=== PATIENT | male | born 1950 | race Caucasian/White ===

== ENCOUNTER 2021-05-29 14:41 | Emergency (ER) | payer OTHER ==
[~2021-05-29] VITALS: Ht 177.8 cm; Wt 99.8 kg
[~2021-05-29 14:41] MED LIST: ASPI325 PO; LISI20 PO
[2021-05-29 15:03] LABS: BASOPHILS ABSOLUTE AUTO 0.03 K/mm3 (0.00-0.23); BASOPHILS PERCENT AUTO 0 % (0-2); EOSINOPHILS ABSOLUTE AUTO 0.12 K/mm3 (0.00-0.68); EOSINOPHILS PERCENT AUTO 2 % (0-6); Hematocrit 36.5 % (37.0-53.0); Hemoglobin 12.1 g/dL (13.5-17.5); IMMATURE GRAN ABSOLUTE AUTO 0.02 K/mm3 (0.00-0.10); IMMATURE GRAN PERCENT AUTO 0 % (0-1); LYMPHOCYTES ABSOLUTE AUTO 1.92 K/mm3 (0.84-5.20); LYMPHOCYTES PERCENT AUTO 27 % (21-46); MONOCYTES ABSOLUTE AUTO 0.85 K/mm3 (0.16-1.47); MONOCYTES PERCENT AUTO 12 % (4-13); Mean Corpuscular HGB 31.4 pg (26.0-34.0); Mean Corpuscular HGB Conc 33.2 g/dL (31.5-36.5); Mean Corpuscular Volume 95 fL (80-100); Mean Platelet Volume 10.3 fL (9.1-12.4); NEUTROPHILS ABSOLUTE AUTO 4.08 K/mm3 (1.96-9.15); NEUTROPHILS PERCENT AUTO 58 % (41-73); Platelet Count 163 K/mm3 (150-400); RDW Coefficient Variation 12.3 % (11.7-14.2); RDW Standard Deviation 42.5 fL (35.1-46.3); Red Blood Cell Count 3.85 M/mm3 (4.30-5.90); White Blood Cell Count 7.02 K/mm3 (4.00-11.30)
[2021-05-29 15:27] LABS: Alanine Aminotransfer (ALT/SGP 27 U/L (12-78); Albumin, Blood 3.3 g/dL (3.4-5.0); Albumin/Globulin Ratio 0.9 (0.8-1.8); Alk Phos 61 U/L (50-136); Anion Gap 7 mmol/L (6-16); Aspartate Aminotrans (AST/SGOT 16 U/L (12-37); Bilirubin, Total 0.5 mg/dL (0.1-1.0); Blood Urea Nitrogen 25 mg/dL (8-24); Bun/Creatinine Ratio 27.4 (12.0-20.0); CO2, Blood 22 mmol/L (21-32); Calcium, Blood 8.9 mg/dL (8.5-10.1); Chloride, Blood 106 mmol/L (98-108); Creatinine, Blood 0.91 mg/dL (0.60-1.20); Globulin, Blood 3.5 g/dL (2.2-4.0); Glomerular Filtration Rate >60 (60-); Glucose, Blood 107 mg/dL (70-99); Potassium, Blood 4.2 mmol/L (3.5-5.5); Sodium, Blood 135 mmol/L (136-145); Total Protein, Blood 6.8 g/dL (6.4-8.2)
[2021-05-29] MEDS ORDERED: VITAMIN D325 MC3 PO (16:02)
[2021-05-29] MEDS ORDERED: LATANOPROST2.5 M3 BOTHEYES (16:40)
[2021-05-29] MEDS ORDERED: LOSA50 PO (16:40)
[2021-05-29] MEDS ORDERED: Betimol5 ML BOTHEYES (16:41)
[2021-05-29] MEDS ORDERED: OMEP20ER PO (16:41)
== END 2021-05-29 17:31 | disposition home or self-care (01) ==
LOC: ER 14:41
PROVIDERS: Physician Assistant
DX: K92.1 Melena (principal); I10 Essential (primary) hypertension; Z79.82 Long term (current) use of aspirin
CPT/HCPCS: 80053; 84484; 85025; 86850; 86900; 86901; 93005; 93010; 99285-25; J7030

== ENCOUNTER 2021-06-01 17:52 | Emergency (ER) | payer OTHER ==
[~2021-06-01] VITALS: Ht 177.8 cm; Wt 97.5 kg
[~2021-06-01 17:52] MED LIST changes: +Betimol5 ML BOTHEYES; +LATANOPROST2.5 M3 BOTHEYES; +LOSA50 PO; +OMEP20ER PO; +VITAMIN D325 MC3 PO
[2021-06-01 18:37] LABS: BASOPHILS ABSOLUTE AUTO 0.03 K/mm3 (0.00-0.23); BASOPHILS PERCENT AUTO 0 % (0-2); EOSINOPHILS PERCENT AUTO 1 % (0-6); Hematocrit 34.5 % (37.0-53.0); Hemoglobin 11.7 g/dL (13.5-17.5); IMMATURE GRAN ABSOLUTE AUTO 0.03 K/mm3 (0.00-0.10); IMMATURE GRAN PERCENT AUTO 0 % (0-1); LYMPHOCYTES ABSOLUTE AUTO 1.45 K/mm3 (0.84-5.20); LYMPHOCYTES PERCENT AUTO 15 % (21-46); MONOCYTES ABSOLUTE AUTO 1.29 K/mm3 (0.16-1.47); MONOCYTES PERCENT AUTO 14 % (4-13); Mean Corpuscular HGB 32.1 pg (26.0-34.0); Mean Corpuscular HGB Conc 33.9 g/dL (31.5-36.5); Mean Corpuscular Volume 95 fL (80-100); Mean Platelet Volume 10.3 fL (9.1-12.4); NEUTROPHILS ABSOLUTE AUTO 6.52 K/mm3 (1.96-9.15); NEUTROPHILS PERCENT AUTO 69 % (41-73); Platelet Count 186 K/mm3 (150-400); RDW Coefficient Variation 12.3 % (11.7-14.2); RDW Standard Deviation 42.7 fL (35.1-46.3); Red Blood Cell Count 3.65 M/mm3 (4.30-5.90); White Blood Cell Count 9.42 K/mm3 (4.00-11.30)
[2021-06-01 18:56] LABS: Alanine Aminotransfer (ALT/SGP 28 U/L (12-78); Albumin, Blood 3.6 g/dL (3.4-5.0); Albumin/Globulin Ratio 0.9 (0.8-1.8); Alk Phos 68 U/L (50-136); Anion Gap 6 mmol/L (6-16); Aspartate Aminotrans (AST/SGOT 20 U/L (12-37); Bilirubin, Total 0.4 mg/dL (0.1-1.0); Blood Urea Nitrogen 17 mg/dL (8-24); Bun/Creatinine Ratio 16.3 (12.0-20.0); CO2, Blood 26 mmol/L (21-32); Calcium, Blood 9.2 mg/dL (8.5-10.1); Chloride, Blood 103 mmol/L (98-108); Creatinine, Blood 1.04 mg/dL (0.60-1.20); Globulin, Blood 3.8 g/dL (2.2-4.0); Glomerular Filtration Rate >60 (60-); Glucose, Blood 107 mg/dL (70-99); Potassium, Blood 3.8 mmol/L (3.5-5.5); Sodium, Blood 135 mmol/L (136-145); Total Protein, Blood 7.4 g/dL (6.4-8.2)
[2021-06-02] MEDS ORDERED: ALBU90OI INH (05:22)
[2021-06-02] MEDS ORDERED: AMMONIUM LACTATE1 ML MC (05:23)
[2021-06-02] MEDS ORDERED: ARTIFICIAL TEA1 EAC1 (05:23)
[2021-06-02] MEDS ORDERED: ROCKLATAN 0.022.5 M1 OP (05:24)
[2021-06-02] MEDS ORDERED: LATA.005SO BOTHEYES (05:24)
== END 2021-06-01 19:54 | disposition left against medical advice (07) ==
LOC: ER 17:52
PROVIDERS: Physician Assistant
DX: K92.2 Gastrointestinal hemorrhage, unspecified (principal); Z53.20 Procedure and treatment not carried out because of patient's decision for unspecified reasons
CPT/HCPCS: 36415; 80053; 85025; 93005; 93010; 99284-25

== ENCOUNTER 2021-06-02 04:50 | Observation (INO) | payer OTHER ==
[~2021-06-02] VITALS: Ht 177.8 cm; Wt 97.8 kg
[2021-06-02] MEDS ORDERED: ALBU90OI INH (05:22)
[2021-06-02] MEDS ORDERED: ARTIFICIAL TEA1 EAC1 (05:23)
[2021-06-02] MEDS ORDERED: AMMONIUM LACTATE1 ML MC (05:23)
[2021-06-02] MEDS ORDERED: ROCKLATAN 0.022.5 M1 OP (05:24)
[2021-06-02] MEDS ORDERED: LATA.005SO BOTHEYES (05:24)
[2021-06-02 05:51] LABS: BASOPHILS ABSOLUTE AUTO 0.03 K/mm3 (0.00-0.23); BASOPHILS PERCENT AUTO 0 % (0-2); EOSINOPHILS ABSOLUTE AUTO 0.08 K/mm3 (0.00-0.68); EOSINOPHILS PERCENT AUTO 1 % (0-6); Hematocrit 31.8 % (37.0-53.0); Hemoglobin 10.8 g/dL (13.5-17.5); IMMATURE GRAN ABSOLUTE AUTO 0.02 K/mm3 (0.00-0.10); IMMATURE GRAN PERCENT AUTO 0 % (0-1); LYMPHOCYTES ABSOLUTE AUTO 1.08 K/mm3 (0.84-5.20); LYMPHOCYTES PERCENT AUTO 13 % (21-46); MONOCYTES ABSOLUTE AUTO 1.09 K/mm3 (0.16-1.47); MONOCYTES PERCENT AUTO 13 % (4-13); Mean Corpuscular HGB 31.7 pg (26.0-34.0); Mean Corpuscular Volume 93 fL (80-100); Mean Platelet Volume 10.4 fL (9.1-12.4); NEUTROPHILS ABSOLUTE AUTO 6.34 K/mm3 (1.96-9.15); NEUTROPHILS PERCENT AUTO 74 % (41-73); Platelet Count 174 K/mm3 (150-400); RDW Coefficient Variation 12.3 % (11.7-14.2); RDW Standard Deviation 41.8 fL (35.1-46.3); Red Blood Cell Count 3.41 M/mm3 (4.30-5.90); White Blood Cell Count 8.64 K/mm3 (4.00-11.30)
[2021-06-02 06:12] LABS: Alanine Aminotransfer (ALT/SGP 25 U/L (12-78); Albumin, Blood 3.2 g/dL (3.4-5.0); Albumin/Globulin Ratio 0.8 (0.8-1.8); Alk Phos 66 U/L (50-136); Anion Gap 5 mmol/L (6-16); Aspartate Aminotrans (AST/SGOT 18 U/L (12-37); Bilirubin, Total 0.6 mg/dL (0.1-1.0); Blood Urea Nitrogen 15 mg/dL (8-24); Bun/Creatinine Ratio 17.9 (12.0-20.0); CO2, Blood 26 mmol/L (21-32); Calcium, Blood 9.1 mg/dL (8.5-10.1); Chloride, Blood 105 mmol/L (98-108); Creatinine, Blood 0.84 mg/dL (0.60-1.20); Globulin, Blood 3.8 g/dL (2.2-4.0); Glomerular Filtration Rate >60 (60-); Glucose, Blood 117 mg/dL (70-99); Potassium, Blood 3.5 mmol/L (3.5-5.5); Sodium, Blood 136 mmol/L (136-145)
[2021-06-02 07:21] LABS: International Normalized Ratio 1.01; Prothrombin Time Results 10.9 Sec (9.7-11.5)
--- NOTE | 2021-06-02 11:41 | NUR ---
PT ARRIVED TO UNIT FROM ER AT APROX 1100 BY WC. PT TRANSFERED TO BED INDEPENDENTLY. PT DENIES PAIN. ABD SOFT. REPORTS BLACK TARRY STOOL, LAST EPISODE MONDAY,REPORTS "NO REAL BM SINCE THEN". GI WAS CONSULTED BY ER MD,PT TO BE NPO AT 1300.
[2021-06-02 17:10] LABS: Hematocrit 32.6 % (37.0-53.0)
--- NOTE | 2021-06-02 17:50 | NUR ---
PT TO DAY SURGERY AT APROX 2777
--- NOTE | 2021-06-02 18:05 | NUR ---
06/02/21 1805 Carlyle Liz PATIENT DETERMINED TO BE ASA APPROPRIATE FOR PROPOFOL SEDATION PRIOR TO START OF PROCEDURE BY DR. JACOB Bite Block Placed. 3-LEAD EKG REVIEWED WITH PHYSICIAN PRIOR TO START OF PROCEDURE. Patient to ENDO 1. History, Chart, Medications and Allergies reviewed before start of procedure. MONITOR INTACT WITH CONTINUOUS PULSE OXIMETRY AND INTERMITTENT BP. O2 VIA N/C INTACT THROUGHOUT SEDATION/PROCEDURE.
[2021-06-03 04:24] LABS: Hematocrit 31.2 % (37.0-53.0); Hemoglobin 10.5 g/dL (13.5-17.5); Mean Corpuscular HGB 31.5 pg (26.0-34.0); Mean Corpuscular HGB Conc 33.7 g/dL (31.5-36.5); Mean Corpuscular Volume 94 fL (80-100); Mean Platelet Volume 10.4 fL (9.1-12.4); Platelet Count 183 K/mm3 (150-400); RDW Coefficient Variation 12.2 % (11.7-14.2); RDW Standard Deviation 42.2 fL (35.1-46.3); Red Blood Cell Count 3.33 M/mm3 (4.30-5.90); White Blood Cell Count 6.28 K/mm3 (4.00-11.30)
--- NOTE | 2021-06-03 05:02 | NUR ---
SHIFT SUMMARY S/P EGD. PT AOX4. VSS. PT DENIES PAIN. TOLERATING PO INTAKE. REQUESTING FOR SOFT MECHANICAL DIET BECAUSE HE DID NOT BRING HIS DENTURES WITH HIM. PT DENIES NAUSEA AND VOMITING. PT INDEPENDENT IN ROOM. GOT UP AND USED THE RESTROOM X4 T/O SHIFT. VOIDING WITHOUT DIFFICULTY. PASSING FLATUS, DENIES BM AT THIS TIME. PT SLEPT GOOD LAST NIGHT, STATES THAT HE GOT SOME SLEEP AFTER 3 DAYS OF NOT FEELING GOOD. CALL LIGHT WITHIN REACH. WILL PROVIDE REPORT TO ONCOMING NURSE.
--- NOTE | 2021-06-03 10:33 | NUR ---
PT WITH 10 ML OF DARK TARRY STOOL THEN STATES WHEN HE WIPED WITH TOILET TISSUE A FEW MINUTES LATER HAD SMEAR OF BLOOD TINGED STOOL
[2021-06-03] MEDS ORDERED: ACET325 PO (10:47)
[2021-06-03] MEDS ORDERED: ONDA4ODT MM (10:48)
[2021-06-03] MEDS ORDERED: MIRALAX17 GM PO (12:35)
--- NOTE | 2021-06-03 13:41 | NUR ---
7801 discharge instructions reviewed with patient and pt verbalizes understanding of. pt ambulating in room, denies pain or nausea, voiding clear yellow urine. one 10 ml tarry stool. pt discharged to home
== END 2021-06-03 13:37 | disposition home or self-care (01) ==
LOC: ER 04:50 → SURS 04:51 → ERHOLD 04:51 → SURS 10:55
PROVIDERS: Emergency Medicine; Nurse Practitioner Acute Care; ADMIT Internal Medicine
DX: K29.81 Duodenitis with bleeding (principal); K29.51 Unspecified chronic gastritis with bleeding; D62 Acute posthemorrhagic anemia; I10 Essential (primary) hypertension; J44.9 Chronic obstructive pulmonary disease, unspecified; K21.9 Gastro-esophageal reflux disease without esophagitis; Z79.1 Long term (current) use of non-steroidal anti-inflammatories (NSAID); Z96.652 Presence of left artificial knee joint
CPT/HCPCS: 36415; 80053; 82947; 85014; 85018; 85025; 85027; 85610; 85730; 86850; 86900; 86901; 88305; 88342; 93005; 93010; 96374; 96375; 99285-25; A9270; C9113; G0378; J2704; J7030; J7120

== ENCOUNTER 2024-09-08 04:09 | Emergency (ER) | payer OTHER ==
[~2024-09-08] VITALS: Ht 177.8 cm; Wt 99.8 kg
[~2024-09-08 04:09] MED LIST changes: +ACET325 PO; +ALBU90OI INH; +AMMONIUM LACTATE1 ML MC; +ARTIFICIAL TEA1 EAC1; +LATA.005SO BOTHEYES; +MIRALAX17 GM PO; +ONDA4ODT MM; +ROCKLATAN 0.022.5 M1 OP
[2024-09-08 04:11] VITALS: BP 140/129
[2024-09-08] MEDS ORDERED: OxyCODONE HCL 5 MG TAB PO ONE (04:35)
== END 2024-09-08 06:32 | disposition home or self-care (01) ==
LOC: ER 04:09
DX: S06.9X9A Unspecified intracranial injury with loss of consciousness of unspecified duration, initial encounter (principal); S39.92XA Unspecified injury of lower back, initial encounter; J44.9 Chronic obstructive pulmonary disease, unspecified; K21.9 Gastro-esophageal reflux disease without esophagitis; E78.5 Hyperlipidemia, unspecified; I10 Essential (primary) hypertension; W01.0XXA Fall on same level from slipping, tripping and stumbling without subsequent striking against object, initial encounter; Z79.899 Other long term (current) drug therapy
CPT/HCPCS: 70450; 72100; 73502; 93005; 93010; 99284-25; A9270

== ENCOUNTER 2025-07-05 11:50 | Inpatient (IN) | payer OTHER ==
[~2025-07-05] VITALS: Ht 180.3 cm; Wt 96.8 kg
[2025-07-05] MEDS ORDERED: Lidocaine 4% 1 Patch TOP ONE (12:00)
[2025-07-05] MEDS ORDERED: Albuterol 2.5 MG/3 ML VIAL INH SCH (12:10)
[2025-07-05 12:11] LABS: pH Blood Venous 7.47 (7.34-7.37)
[2025-07-05 12:29] LABS: BASOPHILS ABSOLUTE AUTO 0.02 K/mm3 (0.00-0.23); BASOPHILS PERCENT AUTO 0 % (0-2); EOSINOPHILS ABSOLUTE AUTO 0.05 K/mm3 (0.00-0.68); EOSINOPHILS PERCENT AUTO 1 % (0-6); Hematocrit 44.5 % (37.0-53.0); Hemoglobin 15.1 g/dL (13.5-17.5); IMMATURE GRAN ABSOLUTE AUTO 0.03 K/mm3 (0.00-0.10); IMMATURE GRAN PERCENT AUTO 0 % (0-1); LYMPHOCYTES ABSOLUTE AUTO 0.72 K/mm3 (0.84-5.20); LYMPHOCYTES PERCENT AUTO 7 % (21-46); MONOCYTES ABSOLUTE AUTO 0.45 K/mm3 (0.16-1.47); MONOCYTES PERCENT AUTO 4 % (4-13); Mean Corpuscular HGB Conc 33.9 g/dL (31.5-36.5); Mean Corpuscular Volume 92 fL (80-100); NEUTROPHILS ABSOLUTE AUTO 9.39 K/mm3 (1.96-9.15); NEUTROPHILS PERCENT AUTO 88 % (41-73); NRBC ABSOLUTE 0.00 K/mm3 (0.00-0.02); NRBC Auto 0.0 /100 WBC (0.0-0.2); RDW Coefficient Variation 12.6 % (11.7-14.2); RDW Standard Deviation 42.5 fL (35.1-46.3)
[2025-07-05 13:01] LABS: Platelet Count 125 K/mm3 (150-400)
[2025-07-05] MEDS ORDERED: CefTRIAXone Sodium 1,000 MG in NS 100 ML IV ONE (13:10)
[2025-07-05 13:35] LABS: Alanine Aminotransfer (ALT/SGP 29.0 U/L (12-78); Albumin, Blood 3.7 g/dL (3.4-5.0); Albumin/Globulin Ratio 0.9 (0.8-1.8); Anion Gap 8.0 mmol/L (3-11); Aspartate Aminotrans (AST/SGOT 27.0 U/L (12-37); Bilirubin, Total 0.5 mg/dL (0.1-1.0); Blood Urea Nitrogen 19.0 mg/dL (8-24); CO2, Blood 27.0 mmol/L (21-32); Calcium, Blood 9.2 mg/dL (8.5-10.1); Chloride, Blood 99.0 mmol/L (98-108); Creatinine, Blood 0.85 mg/dL (0.60-1.20); Globulin, Blood 3.9 g/dL (2.2-4.0); Glucose, Blood 133.0 mg/dL (70-99); Potassium, Blood 4.3 mmol/L (3.5-5.5); Sodium, Blood 130.0 mmol/L (136-145); Total Protein, Blood 7.6 g/dL (6.4-8.2)
[2025-07-05] MEDS ORDERED: FLU VACC TS2025(65UP)/MF59C/PF 45 MCG/0.5 ML SYRINGE IM SCH (13:35)
[2025-07-05] MEDS ORDERED: Guaifenesin/Dextromethorphan Syrup 5 ML UDC PO PRN (14:00)
[2025-07-05] MEDS ORDERED: Ipratropium/Albuterol SulF 2.5-0.5MG/3 ML Amp INH SCH (14:00)
[2025-07-05 16:44] VITALS: BP 141/81
--- NOTE | 2025-07-05 18:02 | NUR ---
ADMISSION NOTE: PATIENT ARRIVES TO ROOM VIA GURNEY AT 1630 FROM ER FOR DX'S OF ACUTE RESP FAILURE c HYPOXIA. PATIENT TRANSFERRED TO BED c SBA. PATIENT ORIENTATED TO ROOM AND CALL SYSTEM. PATIENT ADMISSION, MEDREC AND SKIN ASSESSMENT c 2 RN'S VERIFIED COMPLETED. PATIENT DENIES CP/PRESSURE, SOB, N/V AND DIZZINESS. PATIENT ON 3L O2 VIA NC, SATTING 94%, LUNGS WHEEZY/DIM T/O TO AUSCULTATION. PATIENT A/OX4, ANSWER TO QUESTIONS APPROPRIATELY AND ABLE TO MAKE NEEDS KNOWN. VITAL SIGNS REVIEWED. BED IN LOWEST POSITION AND CALL LIGHT IN REACH.
[2025-07-05] MEDS ORDERED: AREDS PO (18:33)
[2025-07-05] MEDS ORDERED: ATOR20 PO (18:35)
[2025-07-05] MEDS ORDERED: Amlodipine Bes2.5 MG PO (18:35)
[2025-07-05] MEDS ORDERED: MAGNESIUM OXID500 MG PO (18:36)
[2025-07-05] MEDS ORDERED: THERA-D2000 UNIT PO (18:36)
[2025-07-05 19:50] VITALS: BP 148/69
[2025-07-06 04:20] VITALS: BP 143/80
--- NOTE | 2025-07-06 04:27 | NUR ---
SHIFT SUMMARY PT A&Ox4 AND PLEASANT. ONLY C/O PAIN IN LEFT SIDE WHILE COUGHING. COUGH MEDS GIVEN PER EMAR. PT ON 3L AT START OF SHIFT BUT O2 INCREASED TO 5L DURING SLEEP TO KEEP SATS ABOVE 90%. CONTINIOUS PULSE OX IN PLACE. RT AT BEDSIDE FOR BREATHING TX. VSS. PT REPORTS DECREASED COUGH AND ABLE TO GET SOME SLEEP. BED IN LOWEST POSITION AND CALL LIGHT IN REACH.
[2025-07-06 06:21] LABS: Hematocrit 40.9 % (37.0-53.0); Hemoglobin 13.4 g/dL (13.5-17.5)
[2025-07-06 06:34] LABS: Anion Gap 8.0 mmol/L (3-11); Blood Urea Nitrogen 24.0 mg/dL (8-24); CO2, Blood 26.0 mmol/L (21-32); Calcium, Blood 8.5 mg/dL (8.5-10.1); Chloride, Blood 103.0 mmol/L (98-108); Creatinine, Blood 0.9 mg/dL (0.60-1.20); Glucose, Blood 122.0 mg/dL (70-99); Potassium, Blood 4.1 mmol/L (3.5-5.5); Sodium, Blood 133.0 mmol/L (136-145)
[2025-07-06 07:15] VITALS: BP 134/81
[2025-07-06] MEDS ORDERED: Lidocaine 4% 1 Patch TOP SCH (09:00)
[2025-07-06] MEDS ORDERED: Enoxaparin 40 MG/0.4 ML SYR SC SCH (09:00)
[2025-07-06] MEDS ORDERED: NS 250 ML IV PRN (11:10)
[2025-07-06] MEDS ORDERED: CefTRIAXone Sodium 1,000 MG in NS 100 ML IV SCH (12:00)
[2025-07-06 15:49] VITALS: BP 142/73
--- NOTE | 2025-07-06 17:40 | NUR ---
SHIFT SUMMARY: PATIENT A/OX4, PLEASANT AND COOPERATIVE c CARE. PATIENT ON 3L O2 VIA NC, SATTING 89-94%, LUNGS WHEEZY T/O TO AUSCULTATION. PATIENT REPORTS SHARP PAIN TO L SIDED RIB CAGE WHEN HE COUGHS, OTHERWISE NO PAIN, LIDOCAINE PATCH IN PLACE TO AFFECTED SITE. PATIENT DENIES CP/PRESSURE, SOB, N/V AND DIZZINESS. PATIENT HAS GREAT APPETITE, CONTINENT OF BLADDER AND AMBULATES TO BATHROOM c SBA. PATIENT AGREED TO STAYED ONE MORE NIGHT, BUT EXPRESSESS TO BE DISCHARGE TOMORROW, DR. SAHA IS AWARE. PATIENT RECEIVED SCHEDULED MEDS PER EMAR. VITAL SIGNS REVIEWED. PATIENT HAS HAD NO COMPLAINTS OR DENIES NEW CONCERN THIS SHIFT. CALL LIGHT IN REACH.
[2025-07-06 19:49] VITALS: BP 153/83
[2025-07-06] MEDS ORDERED: Lactobacil 2-S.Thermo-Bifido 1 1 Cap PO SCH (21:00)
[2025-07-07 04:28] VITALS: BP 129/92
--- NOTE | 2025-07-07 05:44 | NUR ---
SHIFT SUMMARY- SHIFT EVENT- PNEUMONIA, SHARP LEFT SIDED RIBCAGE PAIN WITH COUGHING 8/10 PAIN. CALL TO HCP; ADDED TRAMADOL Q8 AND TYLENOL FOR PAIN MANAGEMENT. TRAMADOL AND TYLENOL ADMINISTERED 02:16. PRN ROBITUSSIN ADMINISTERED AT 23:29. PATIENT ON 3L 02 NC. CONTINUOUS PULSE/OX ON. LUNG SOUNDS DIMINISHED AND PATIENT IS SOB WITH EXERTION. PRODUCTIVE COUGH, YELLOW/THICK. PATIENT IS INDEPENDENT IN ROOM. CONTINENT OF BOWEL AND BLADDER. CODE STATUS- DNR; BRACELET ON. NEURO- A&OX4 PLEASANT, COOPERATIVE WITH CARE. PAIN- 8/10 SHARP RIBCAGE PAIN WHEN COUGHING. MEDICATED PER EMR. MUSCULOSKELETAL- INDEPENDENT MOBILITY. CARDIAC-HTN HISTORY, SCD ORDERED, PATIENT REFUSED. GASTRO- CONTINENT. HEART HEALTHY DIET. NO BOWEL PROTOCOL ORDERED. RESPIRATORY- LUNG SOUNDS DIMINISHED ON 3L NC. PRODUCTIVE THICK/YELLOW COUGH. PRN ROBITUSSEN ADMINISTERED 23:29. GENITOURINARY- CONTINENT, INDEPENDENT TO IN ROOM BATHROOM.. IV SITES- IV LEFT HAND; SALINE LOCKED. NS TKO ORDERED. MEDICATION ADMINISTRATION- WHOLE WITH FLUID
[2025-07-07 07:19] VITALS: BP 151/89
--- NOTE | 2025-07-07 09:00 | NUR ---
pt laying in bed awake a/ox4, pleasant and cooperative with care, follows commands well, lungs have exp wheeze t/o, on 3 liters 02 via n/c at this time, no cough noted, but reports occ productive cough of yellow sputum, hrr, no edema noted at this time, pt reports will swell if up a long time, piv to lfa site is clear and patent, btx4, abd flat soft nontender, voids without diff, skin c/w/d, maew, ollie, call light in reach. will have home o2 eval and possibly home today.
[2025-07-07] MEDS ORDERED: Fluticasone 0.05% Nasal Spray SCH (11:30)
[2025-07-07] MEDS ORDERED: CEFP200 (13:17)
[2025-07-07] MEDS ORDERED: ROBITUSSIN100 MG/5 M PO (13:19)
[2025-07-07] MEDS ORDERED: FLONASE SENSIM5.9 M1 (13:20)
[2025-07-07] MEDS ORDERED: LIDO700A20 TOP (13:21)
[2025-07-07] MEDS ORDERED: Prednisone10 MG PO (13:22)
[2025-07-07] MEDS ORDERED: LACT PO (13:52)
[2025-07-07 15:16] VITALS: BP 142/83
--- NOTE | 2025-07-07 15:52 | NUR ---
PT HAS BEEN DISCHARGED TO HOME, HAD TO WAIT FOR AN 02 TANK TO GET HIM HOME, PIV REMOVED INTACT, WENT OVER DISCHARGE INSTRUCTIONS WITH DAUGHTER, SHE VERBALIZED UNDERSTANDING, NEW MEDS FAXED TO [facility]. LEFT VIA WHEELCHAIR WITH DAUGHTER IN ATTENDENCE.
--- NOTE | 2025-07-07 15:56 | NUR ---
PT HAS BEEN DISCHARGED TO HOME, PIV REMOVED INTACT, NEW MEDS FAXED TO [facility], WENT OVER THEM WITH PT, HE VERBALIZED UNDERSTANDING, WAITED FOR ID TO BRING 02 TANK TO GET HIM HOME, LEFT VIA WHEELCHAIR WITH GRADUATE STUDIES DEAN IN ATTENDENCE.
== END 2025-07-07 16:15 | disposition home or self-care (01) | DRG 177 ==
LOC: ER 11:50 → ERHOLD 11:51 → MEDS 11:51 → ER 11:51 → MEDS 11:51 → ERHOLD 11:51 → MEDS 16:31 → ERHOLD 07-06 15:22 → MEDS 07-06 15:22
PROVIDERS: Emergency Medicine; ADMIT Student in an Organized Health Care Education/Training Program
DX: J15.69 Pneumonia due to other Gram-negative bacteria (principal); J96.01 Acute respiratory failure with hypoxia; J44.1 Chronic obstructive pulmonary disease with (acute) exacerbation; E87.1 Hypo-osmolality and hyponatremia; I10 Essential (primary) hypertension; K21.9 Gastro-esophageal reflux disease without esophagitis; E78.5 Hyperlipidemia, unspecified; Z66 Do not resuscitate; Z99.81 Dependence on supplemental oxygen; I45.10 Unspecified right bundle-branch block; D69.6 Thrombocytopenia, unspecified; Z96.652 Presence of left artificial knee joint; Z87.891 Personal history of nicotine dependence; Z98.890 Other specified postprocedural states; Z79.899 Other long term (current) drug therapy
CPT/HCPCS: 36415; 36416; 71045; 80048; 80053; 82803; 83605; 84484; 85014; 85018; 85025; 94640; 94664; 94761; 94762; 96365; 96367; 96372; 96375; 96376; 99285-25; A9270; G0378; J0456; J0696; J1650; J2919; J7050; J7512